=== PATIENT | male | born 1945 | race Caucasian/White ===

== ENCOUNTER → 2023-03-20 09:56 | Outpatient (REF) | payer OTHER, SELFPAY | LOC: HWRAD 09:56 | PROVIDERS: ATTENDING PHYSICIAN Nurse Practitioner Adult Health; FAMILY PHYSICIAN Family Medicine | DX: Z87.891 Personal history of nicotine dependence (principal) | CPT/HCPCS: 71271 ==

== ENCOUNTER 2023-04-18 06:24 | Day surgery (SDC) | payer OTHER, SELFPAY ==
[2023-04-18 09:31] VITALS: BMI 32.4
[2023-04-18 09:34] VITALS: BP 138/81
[2023-04-18 09:49] LABS: Glucose - Point of Care 100 mg/dl (70-99)
[2023-04-18 12:25] LABS: Glucose - Point of Care 94 mg/dl (70-99)
[2023-04-18 13:25] VITALS: BP 119/81
[2023-04-18 13:30] VITALS: BP 140/88
[2023-04-18 13:45] VITALS: BP 142/90
[2023-04-18 14:00] VITALS: BP 144/86
== END 2023-04-18 14:20 | disposition home or self-care (01) ==
LOC: GI 06:24
PROVIDERS: ATTENDING PHYSICIAN Internal Medicine Gastroenterology
DX: K31.89 Other diseases of stomach and duodenum (principal); Z79.01 Long term (current) use of anticoagulants
CPT/HCPCS: 43237; 82962

== ENCOUNTER → 2023-05-30 11:53 | Outpatient (REF) | payer OTHER, SELFPAY | LOC: HWRAD 11:53 | PROVIDERS: ATTENDING PHYSICIAN Specialist; FAMILY PHYSICIAN Family Medicine | DX: C67.9 Malignant neoplasm of bladder, unspecified (principal) | CPT/HCPCS: 72193; Q9967 ==

== ENCOUNTER 2023-07-03 09:35 | Emergency (ER) | payer OTHER, SELFPAY ==
[2023-07-03 09:51] VITALS: BP 151/89
[2023-07-03 11:03] VITALS: BP 142/74
--- NOTE | 2023-07-03 11:19 | ED.GENMED ---
History of Present Illness
General
Chief Complaint: Flank Pain
Source: patient
Exam Limitations: none
Time Seen by Provider: 07/03/23 11:05
Travel History
Have you had any contact with someone who has COVID-19?: No
Do you have any symptoms of coronavirus? Fever > 100 degrees, chills, cough, shortness of breath, sore throat, loss of taste or smell, muscle aches, or headache?: No
History of Present Illness
History of Present Illness:
77-year-old male presents complaining of persistent right lateral rib pain after a fall he sustained 3 days ago. He is on Eliquis. He is on chronic oxygen. He notes pain with motion and trying to have a bowel movement. He denies any shortness of
breath or hemoptysis. No other complaints at this time
Past History
Past History
ED Past Medical History: Cancer (Badder), COPD, GERD, HTN, NIDDM, Psychiatric and Other (BPH, chronic back pain, DVT/PE)
ED Past Surgical History: Orthopedic, Urological and Other (Hernia repair, ENT surgeon)
Social History
Tobacco: Smoker
Alcohol: Former
Drug: None
Personal:
Living: with family
Employment: Employed (Self-employed)
Family History
Family History: Other (Noncontributory)
Phy Exam
Physical Exam
Physical Exam:
General: Well-appearing male no acute respiratory distress
HEENT normocephalic atraumatic
Heart: Regular rate and rhythm no murmurs
Lungs: Clear no wheeze or rales breath sounds heard throughout
Abdomen: Soft nontender nondistended no guarding or rebound normal bowel sounds
Extremities: No cyanosis
Course
Orders/Labs/Results
Orders:
Orders
07/03/23 11:14
CR Ribs-right 3 Vw W/pa Chest* Urgent
Comment:
Reason For Exam: fall, right rib pain
Vital Signs
Initial and Last Documented VS:
Initial Vital Signs
Temp Pulse Resp BP Pulse Ox
98.1 F 64 22 151/89 91
07/03/23 09:51 07/03/23 09:51 07/03/23 09:51 07/03/23 09:51 07/03/23 09:51
Last Documented Vital Signs
Temp Pulse Resp BP Pulse Ox
98.1 F 66 18 142/74 91
07/03/23 09:51 07/03/23 11:03 07/03/23 11:03 07/03/23 11:03 07/03/23 11:03
MDM/Problems Addressed
Differential Diagnosis Includes:
Right lateral rib pain after mechanical fall. No ecchymosis over the flank no bruising on the abdomen. He is not hypoxic and in no respiratory distress. X-ray pending to evaluate for rib fracture versus pneumothorax
*Critical Care Note
Total Time (30-74mins, 75-104mins- exclusive of procedures): Not Applicable
Update Note
Update Note:
X-rays of the right ribs demonstrate minimally displaced right lateral 10th rib fracture without associated pneumothorax. Recommended continued supportive care with his pain medicine at home. Stable for discharge.
ED Attending Note
-
Portions of this chart may have been created with voice recognition software.� Occasional wrong word or��sound alike� substitutions may have occurred due to the inherent limitations of voice recognition software.
Discharge Plan
Departure
Patient Disposition: Home (Routine Discharge)
Date of Disposition: 07/03/23
Time of Disposition: 12:29
Patient with high blood pressure during this ER visit?: No
Discharge Problem:
Fracture of rib
Instructions: Rib Fracture
Prescriptions:
New
lidocaine [Lidoderm] 5 % adhesive patch,medicated
1 patch topical DAILY Qty: 15 0RF
No Action
atorvastatin 40 MG tablet
40 mg PO QPM
tamsulosin 0.4 MG capsule
0.8 mg PO HS
albuterol sulfate 1 PUFF HFA aerosol inhaler
2 puff inhalation PRN PRN (Reason: sob)
docusate sodium 100 MG capsule
100 mg PO .DAILY,BID PRN (Reason: constipation)
omeprazole 40 MG capsule,delayed release(DR/EC)
40 mg PO DAILY
Epidiolex 1 UNIT solution
0.25 dropperett sublingual HS
Patient Comments:
str
Rx Instructions:
(medical cannibis)
trazodone 100 MG tablet
100 - 200 mg PO HS
Eliquis 5 mg Tablet
5 mg PO BID
Hold Instructions: Resume on 05/11/22.
Trelegy Ellipta 100-62.5-25 mcg Blister With Device
1 inh INHALATION DAILY
hydrocodone-acetaminophen 5-325 mg Tablet
1 tab PO BID
fluoxetine 10 mg Tablet
10 mg PO DAILY
diphenhydramine HCl [Benadryl] 25 mg Capsule
25 mg PO PRN PRN (Reason: itching)
lactase [Lactaid] 3,000 unit Tablet
3,000 unit PO PRN PRN (Reason: GI upset)
loratadine [Claritin] 10 mg Tablet
10 mg PO DAILY
diazepam [Valium] 5 mg Tablet
5 mg PO PRN PRN (Reason: anxiety)
PreserVision AREDS-2 250-90-40-1 mg Tablet,Chewable
1 tab PO DAILY
gabapentin 100 mg Tablet
100 mg PO BID PRN (Reason: neuropathy legs)
Ocuvite-Lutein
1 tab PO DAILY
Januvia 100 MG tablet
100 mg PO QPM
Referrals:
Charlie Simon MD [Family Provider] -
Activity Restrictions/Additional Instructions:
Avoid heavy lifting or twisting activities. Continue with your pain medicine. Continue with stool softeners. Return here for increased pain shortness of breath or fever.
Interventions
Interventions:
*Risk Screen - Suicide Last Done: 07/03/23 09:51
*General Assessment Last Done: 07/03/23 09:51
*Neglect/Abuse Screening Last Done: 07/03/23 09:51
ED- Fall Risk Assessment Last Done: 07/03/23 11:03
VL-Ypqyog-Jigfqovdum Assessment Last Done: 07/03/23 11:03
ED-Male Genitourinary Assessment Last Done: 07/03/23 11:03
Discharge Date and Time
Print Language: SYRIAN
[2023-07-03 12:39] VITALS: BP 141/73
== END 2023-07-03 13:41 | disposition home or self-care (01) ==
LOC: EMR 09:35
PROVIDERS: EMERGENCY PHYSICIAN Emergency Medicine; FAMILY PHYSICIAN Family Medicine
DX: S22.31XA Fracture of one rib, right side, initial encounter for closed fracture (principal); W19.XXXA Unspecified fall, initial encounter; I10 Essential (primary) hypertension; J44.9 Chronic obstructive pulmonary disease, unspecified; E11.9 Type 2 diabetes mellitus without complications; K21.9 Gastro-esophageal reflux disease without esophagitis; N40.0 Benign prostatic hyperplasia without lower urinary tract symptoms; Z99.81 Dependence on supplemental oxygen; G89.29 Other chronic pain; F17.200 Nicotine dependence, unspecified, uncomplicated; Z79.01 Long term (current) use of anticoagulants; Z85.51 Personal history of malignant neoplasm of bladder; Z86.718 Personal history of other venous thrombosis and embolism; Z86.711 Personal history of pulmonary embolism; Z88.6 Allergy status to analgesic agent; Z88.1 Allergy status to other antibiotic agents; Z88.8 Allergy status to other drugs, medicaments and biological substances; Z91.018 Allergy to other foods; Z91.048 Other nonmedicinal substance allergy status
CPT/HCPCS: 99283; 71101

== ENCOUNTER → 2023-11-02 14:28 | Outpatient (REF) | payer OTHER, SELFPAY | LOC: HWRAD 14:28 | PROVIDERS: ATTENDING PHYSICIAN Family Medicine | DX: N50.89 Other specified disorders of the male genital organs (principal) | CPT/HCPCS: 76870; 93976 ==

== ENCOUNTER → 2024-04-23 12:48 | Outpatient (REF) | payer OTHER, SELFPAY | LOC: HWRAD 12:48 | PROVIDERS: ATTENDING PHYSICIAN Nurse Practitioner Adult Health; FAMILY PHYSICIAN Family Medicine | DX: Z87.891 Personal history of nicotine dependence (principal) | CPT/HCPCS: 71271 ==

== ENCOUNTER → 2024-04-29 10:06 | Outpatient (REF) | payer OTHER, SELFPAY | LOC: HWRCS 10:06 | PROVIDERS: ATTENDING PHYSICIAN Nurse Practitioner Adult Health; FAMILY PHYSICIAN Family Medicine | DX: R06.00 Dyspnea, unspecified (principal) | CPT/HCPCS: 93306 ==

== ENCOUNTER 2024-07-13 22:40 | Inpatient (IN) | payer OTHER, SELFPAY ==
[2024-07-13 19:31] VITALS: BP 133/84
--- NOTE | 2024-07-13 19:55 | ED.GENMED ---
History of Present Illness
General
Chief Complaint: Breathing Problem
Time Seen by Provider: 07/13/24 19:39
History of Present Illness
History of Present Illness:
Patient presents to the emergency department with shortness of breath. Symptoms have been gradually worsening over the past weeks to months. However, he notes that over the past few days he has been very fatigued and his pulse oximeter has been
dropping into the low 80s on his typical 3 L nasal cannula oxygen. Denies fevers or chills. Endorses chronic cough that is unchanged. Denies any new chest pain no states he has chronic chest pain from a prior PE and broken ribs. Denies leg
swelling
Past History
Past History
ED Past Medical History: Cancer (Badder), COPD, GERD, HTN, NIDDM, Psychiatric and Other (BPH, chronic back pain, DVT/PE)
ED Past Surgical History: Orthopedic, Urological and Other (Hernia repair, ENT surgeon)
Social History
Tobacco: Smoker
Alcohol: Former
Drug: None
Personal:
Living: with family
Employment: Employed (Self-employed)
Family History
Family History: Other (Noncontributory)
Phy Exam
Physical Exam
Physical Exam:
GENERAL APPEARANCE: Chronically ill-appearing, pale, in no acute distress, on nasal cannula O2
EYES lids/conjunctiva normal
EARS/NOSE/THROAT Mucous membranes moist, uvula midline without oral pharyngeal erythema, exudate or swelling
HEAD/NECK normocephalic atraumatic, neck is supple.
RESPIRATORY respiratory effort normal, speaks in full sentences, no accessory muscle use. Lungs clear to auscultation without rhonchi, wheezes, rales
CARDIAC Regular rate and rhythm, no edema.
ABDOMINAL Soft, ND/NT. No pulsatile masses on exam, rebound tenderness, Corey sign or pain over Mcburney's point.
MUSCLES/EXTREMITIES No abnormal range of motion, no swelling.
SKIN Warm, pink and dry. No rashes
NEUROLOGICAL Speech is clear and appropriate. Normal level of consciousness. 5/5 strength in all extremities.
PSYCH Normal mood and affect. Judgement/competence is appropriate
Scores
Heart Failure Risk
Heart Failure Risk Score: Not Applicable
Course
Orders/Labs/Results
Orders:
Orders
07/13/24 19:51
Electrocardiogram (*1) Stat
Reason for Study: Other
Other Reason for Exam: pneumonia
CR Chest - 2 Views Urgent
Comment:
Reason For Exam: sob
07/13/24 20:02
COVID-19 Antigen Urgent
Source: Nasal Swab
Complete Blood Count/With Diff Urgent
Comprehensive Metabolic Panel Urgent
D-Dimer Urgent
Magnesium Urgent
Troponin I Urgent
Venous Blood Gas Urgent
%Oxygen/Room Air: 3L NC
Influenza A+B Rapid Molecular Urgent
ANA Source: Nasal Swab
Specimen Description:
07/13/24 21:41
Azithromycin 500 mg/250 ml [Zithromax Infusion] 500 mg in 250 ml IV NOW
CefTRIAXone [Rocephin] 1,000 mg IV NOW STA
07/13/24 21:45
Blood Culture Q30M
ANA Source: Blood/Venous
Specimen Description:
07/13/24 22:15
Blood Culture Q30M
ANA Source: Blood/Venous
Specimen Description:
Abnormal Lab Results
07/13/24
20:02
RBC 4.05 L 10^6/uL
(4.70-6.10)
Hgb 12.9 L g/dL
(13.0-18.0)
Hct 38.4 L %
(39.0-52.0)
MCV 94.8 H fL
(80.0-94.0)
MCH 31.9 H pg
(27.0-31.0)
Abs Immat Gran (auto) 0.1 H 10^3/uL
(0-0.05)
Absolute Neuts (auto) 7.7 H 10^3/uL
(1.4-6.5)
Absolute Lymphs (auto) 0.6 L 10^3/uL
(1.2-3.4)
Immature Gran % 0.7 H %
(0-0.5)
Neutrophils % 89.5 H %
(42.2-75.2)
Lymphocytes % 7.3 L %
(20.5-51.1)
Monocytes % 1.6 L %
(1.7-9.3)
VBG pO2 114 H mmHg
(30-50)
VBG HCO3 27.8 H mmol/L
(22-27)
Creatinine 0.5 L mg/dL
(0.7-1.3)
Glucose 157 H mg/dl
(70-99)
07/13/24 20:02
07/13/24 20:02
Vital Signs
Initial and Last Documented VS:
Initial Vital Signs
Temp Pulse Resp BP Pulse Ox
99.3 F 89 16 133/84 88
07/13/24 19:31 07/13/24 19:31 07/13/24 19:31 07/13/24 19:31 07/13/24 19:31
Last Documented Vital Signs
Temp Pulse Resp BP Pulse Ox
99.3 F 81 20 127/83 85
07/13/24 19:31 07/13/24 21:30 07/13/24 21:30 07/13/24 21:00 07/13/24 21:30
*Critical Care Note
Total Time (30-74mins, 75-104mins- exclusive of procedures): Not Applicable
ED Attending Note
ED Attending Note
ED Attending Note:
hx of COPD and chronic lung disease on 3L NC at baseline, prior PE on Eliquis
notes worsening cough and sob and fatigue
low O2 sats at home in the low 80s
he has no wheezing, requiring 5L NC now
CXR with RML infiltrate
covering with ceftriaxone/azithro
-
Portions of this chart may have been created with voice recognition software.� Occasional wrong word or��sound alike� substitutions may have occurred due to the inherent limitations of voice recognition software.
Discharge Plan
Departure
Prescriptions:
No Action
atorvastatin 40 MG tablet
40 mg PO QPM
tamsulosin 0.4 MG capsule
0.8 mg PO HS
albuterol sulfate 1 PUFF HFA aerosol inhaler
2 puff inhalation PRN PRN (Reason: sob)
docusate sodium 100 MG capsule
100 mg PO .DAILY,BID PRN (Reason: constipation)
omeprazole 40 MG capsule,delayed release(DR/EC)
40 mg PO DAILY
Epidiolex 1 UNIT solution
0.25 dropperett sublingual HS
Patient Comments:
str
Rx Instructions:
(medical cannibis)
trazodone 100 MG tablet
100 - 200 mg PO HS
Eliquis 5 mg Tablet
5 mg PO BID
Trelegy Ellipta 100-62.5-25 mcg Blister With Device
1 inh INHALATION DAILY
hydrocodone-acetaminophen 5-325 mg Tablet
1 tab PO BID
fluoxetine 10 mg Tablet
10 mg PO DAILY
diphenhydramine HCl [Benadryl] 25 mg Capsule
25 mg PO PRN PRN (Reason: itching)
lactase [Lactaid] 3,000 unit Tablet
3,000 unit PO PRN PRN (Reason: GI upset)
loratadine [Claritin] 10 mg Tablet
10 mg PO DAILY
diazepam [Valium] 5 mg Tablet
5 mg PO PRN PRN (Reason: anxiety)
PreserVision AREDS-2 250-90-40-1 mg Tablet,Chewable
1 tab PO DAILY
gabapentin 100 mg Tablet
100 mg PO BID PRN (Reason: neuropathy legs)
Ocuvite-Lutein
1 tab PO DAILY
lidocaine [Lidoderm] 5 % adhesive patch,medicated
1 patch topical DAILY Qty: 15 0RF
Januvia 100 MG tablet
100 mg PO QPM
Referrals:
Charlie Simon MD [Family Provider, Family Practice]
Interventions
Interventions:
*Risk Screen - Suicide Last Done: 07/13/24 20:59
*General Assessment Last Done: 07/13/24 20:59
*ED- Fall Risk Assessment Last Done: 07/13/24 20:59
*ED COVID-19 Vaccine History Last Done: 07/13/24 20:59
ED- Cardiac Assessment Last Done: 07/13/24 21:03
ED- Pulmonary Assessment Last Done: 07/13/24 21:03
Discharge Date and Time
Print Language: SETSWANA
[2024-07-13 20:00] VITALS: BP 139/89
[2024-07-13 20:28] LABS: Venous Blood Gas B.E. 2.2 mmol/L (-4 to +4); Venous Blood Gas HCO3 27.8 mmol/L (22-27); Venous Blood Gas O2 Sat % 99.4 %; Venous Blood Gas pCO2 46 mmHg (35-48); Venous Blood Gas pH 7.39 (7.32-7.43); Venous Blood Gas pO2 114 mmHg (30-50)
[2024-07-13 20:29] LABS: % Basophils 0.8 % (0-2); % Eosinophils 0.1 % (0-6); % Immature Granulocytes 0.7 % (0-0.5); % Lymphocytes 7.3 % (20.5-51.1); % Monocytes 1.6 % (1.7-9.3); % Neutrophils 89.5 % (42.2-75.2); Absolute Basophils 0.1 10^3/uL (0-0.2); Absolute Immature Granulocytes 0.1 10^3/uL (0-0.05); Absolute Lymphocytes 0.6 10^3/uL (1.2-3.4); Absolute Monocytes 0.1 10^3/uL (0.1-0.6); Absolute Neutrophils 7.7 10^3/uL (1.4-6.5); Hematocrit 38.4 % (39.0-52.0); Hemoglobin 12.9 g/dL (13.0-18.0); Mean Corp Hgb Conc. 33.6 g/dL (33.0-37.0); Mean Corpuscular Hgb 31.9 pg (27.0-31.0); Mean Corpuscular Volume 94.8 fL (80.0-94.0); Mean Platelet Volume 9.1 fL (7.4-10.4); Nucleated Red Blood Cells % 0 % (-); Platelet Count 209 10^3/uL (130-400); Red Blood Cell Count 4.05 10^6/uL (4.70-6.10); Red Cell Dist. Width 13.2 % (11.5-14.5); White Blood Cell Count 8.6 10^3/uL (4.8-10.8)
[2024-07-13 20:41] LABS: D-Dimer 0.35 ug/mlFEU (0.00-0.50)
[2024-07-13 20:47] LABS: COVID-19 Antigen Negative (Negative)
[2024-07-13 20:54] LABS: Troponin I < 0.012 ng/ml
[2024-07-13 20:59] VITALS: BMI 33.2
[2024-07-13 20:59] LABS: ALT (SGPT) 27 U/L (0-50); AST (SGOT) 24 U/L (17-59); Albumin 4.5 g/dl (3.5-5.0); Alkaline Phosphatase 63 U/L (38-126); Blood Urea Nitrogen 17 mg/dl (9-20); Calcium 8.9 mg/dl (8.4-10.2); Carbon Dioxide 25 mmol/L (22-30); Chloride 104 mmol/L (98-107); Glucose 157 mg/dl (70-99); Magnesium 1.6 mg/dl (1.6-2.3); Potassium 4.4 mmol/L (3.5-5.1); Sodium 136 mmol/L (135-145); Total Protein 7.4 g/dl (6.3-8.2); eGFR > 60.00
[2024-07-13 21:00] VITALS: BP 127/83
--- NOTE | 2024-07-13 21:48 | HPS.HSE ---
Addendum entered and electronically signed by Keven Chambers DO 07/13/24 22:37:
Patient seen and examined independently. Agree with findings and plan as set forth by EV Blount.
Patient is a 78y M with PMH significant for COPD, chronic hypoxemia on home O2 and hypertension who presents to ED complaining of increased SOB for the past 2 days in particular. Patient wears 3 lpm of O2 at home chronically. He woke yesterday
AM with SpO2 in the 80s despite his usual O2 supplementation. He notes some cough. He complains of discomfort in the L ear / jaw area. No fevers or chills. No chest pain.
Patient states that he was extremely SOB this afternoon and he presented to the ED for further evaluation.
In the ED, patient was noted to have marked conversational dyspnea with O2 saturations falling into the 80s with talking alone.
Ass:
Acute on Chronic Hypoxemic Respiratory Failure
RLL Pneumonia
COPD with Acute Exacerbation secondary to the above
Benign Hypertension
DM-II
History of PE
BPH
History of Bladder Cancer
Anxiety / Depression
Plan:
Admit for further evaluation and treatment.
Continue abx for community acquired pneumonia.
IV steroids for now and taper as able.
Pulmonary evaluation for additional recommendations (seen in their office yesterday).
Continue usual outpatient medication regimen.
Follow for clinical improvement.
Original Note:
Family Physician
-
Family Physician: Charlie Simon
Chief Complaint
-
sob
History of Present Illness
78-year-old with past medical history of bladder cancer, COPD, GERD, hypertension, diabetes, BPH, chronic back pain, DVT/PE presented to us with worsening sob. his sob progressively getting worse for past few months. yesterday he woke with oxygen in
80's on 3l. he uses Cpap at hs. sob worse with exertion. he is not able to talk. he increased his oxygen to 4l . today he was evaluated by pulmonology, placed him on steroids. he is complaining of left ear, facial, jaw pain. denied fever, chills,
chest pain. he has chronic cough. he has chronic abdominal pain and all work up were negative. denied dysuria or hematuria.
upon arrival patient was hypoxic requiring 5l of oxygen. chest x ray concerning for pneumonia. patient recived ceftriaxone, zithro, nebs in ER. blood culture sent from ER. admitting for further management.
Medical History
Past Medical History
Past Medical History: Reports Other
Additional Past Medical History:
Bladder cancer, COPD, GERD, hypertension, diabetes, BPH, chronic back pain, DVT, PE
Past Surgical History: Reports Other
Additional Past Surgical History:
Hernia surgery
Social History
Tobacco: Former Smoker
Alcohol: Former
Drug: Marijuana
Personal:
Living: With Family
Family History
Family History: Not pertinent
Allergies / Home Medications
Allergies reflects when Allergies were last updated in [facility].
Home Medications with original date entered in [facility]
Allergy/Medication List:
Allergies
Allergy/AdvReac Type Severity Reaction Status Date / Time
aspirin Allergy Anaphylaxis Verified 07/13/24 19:35
gluten Allergy extensive Verified 07/13/24 19:35
rash
levofloxacin Allergy Swelling, Verified 07/13/24 19:35
breathing
difficulty
pollen extracts Allergy nasal Verified 07/13/24 19:35
congestion
Quinolones Allergy Swelling, Verified 07/13/24 19:35
breathing
difficulty
Salicylates * Allergy Swelling, Verified 07/13/24 19:35
breathing
difficulty
NSAIDS (Non-Steroidal AdvReac Mild GI distress Verified 07/13/24 19:35
Anti-Inflamma
pastrami Allergy Anaphylaxis Uncoded 07/13/24 19:35
Home Medications
sitagliptin phosphate 100 mg tablet (Januvia) 100 mg PO QPM Diabetes 04/29/16
atorvastatin 40 mg tablet 40 mg PO QPM High cholesterol 05/02/16
albuterol sulfate 90 mcg/actuation aerosol inhaler 2 puff inhalation PRN PRN sob 06/11/20
docusate sodium 100 mg capsule 100 mg PO .DAILY,BID PRN constipation 06/11/20
tamsulosin 0.4 mg capsule 0.8 mg PO HS Urinary issue 06/11/20
apixaban 5 mg tablet (Eliquis) 5 mg PO BID Blood clot prevention/tx 05/03/22
Held on 05/10/22. Instructions: Resume on 05/11/22.
fluoxetine 10 mg tablet 10 mg PO DAILY Depression 05/03/22
fluticasone fur. 100 mcg-umeclid 62.5 mcg-vilant 25 mcg inhalat.powder (Trelegy Ellipta) 1 inh inhalation DAILY Lung/breathing issues 05/03/22
hydrocodone 5 mg-acetaminophen 325 mg tablet 1 tab PO BID PRN moderate pain 05/03/22
diazepam 5 mg tablet (Valium) 5 mg PO PRN PRN anxiety 09/19/22
diphenhydramine HCl 25 mg capsule (Benadryl) 25 mg PO PRN PRN itching 09/19/22
loratadine 10 mg tablet (Claritin) 10 mg PO DAILY 09/19/22
Ocuvite-Lutein 1 tab PO DAILY 12/22/22
gabapentin 100 mg tablet 100 mg PO BID neuropathy legs 12/22/22
famotidine 40 mg tablet 40 mg PO DAILY 07/13/24
meclizine 25 mg tablet 25 mg PO TID PRN dizzy 07/13/24
pantoprazole 40 mg tablet,delayed release (Protonix) 40 mg PO BID 07/13/24
vibegron 75 mg tablet (Gemtesa) 75 mg PO DAILY 07/13/24
Review of Systems
-
Constitutional: Reports Fatigue
EENT: Reports No Symptoms
Respiratory: Reports Cough and Trouble Breathing
Cardiac: Reports No Symptoms
Abdomen/GI: Reports No Symptoms
: Reports No Symptoms
Musculoskeletal: Reports No Symptoms
Skin: Reports No Symptoms
Neurological: Reports No Symptoms
Endocrine: Reports No Symptoms
Hematologic/Lymphatic: Reports No Symptoms
Psych: Reports No Symptoms
Physical Exam
Vital Signs
Vital Signs
Temp Pulse Resp BP Pulse Ox
99.3 F 81 20 127/83 85
07/13/24 19:31 07/13/24 21:30 07/13/24 21:30 07/13/24 21:00 07/13/24 21:30
Physical Exam
General: Well Developed, Well Nourished and No Apparent Distress
HEENT: NormoCephalic, Moist mucous membranes and Atraumatic
Respiratory: Rales
Cardiac: S1/S2 and Regular Rhythm; No Murmur or Rub
GI: Soft, Non Tender, Non Distended and Normal Bowel Sounds; No Organomegaly
Rectal: Deferred by Provider
Musculoskeletal: No Clubbing, No Cyanosis and No Edema
Skin: No Rash
Neuro: AO x 3 and Nonfocal/grossly intact
Psych: Calm
Laboratory Results
-
07/13/24 20:02
07/13/24 20:02
Laboratory Results
Total Bilirubin 1.0 mg/dl (0.2-1.3) 07/13/24 20:02
AST 24 U/L (17-59) 07/13/24 20:02
ALT 27 U/L (0-50) 07/13/24 20:02
Alkaline Phosphatase 63 U/L (38-126) 07/13/24 20:02
Troponin I < 0.012 ng/ml 07/13/24 20:02
Data Reviewed
-
Lab Data: Labs Reviewed by me
Impression/Plan
-
# Acute on chronic hypoxic respiratory failure secondary to right middle lobe infiltrate
- Uses 3 L at baseline, at present on 5 L
- Continue supplemental oxygen to keep sat greater than 90, wean as tolerated
- Ceftriaxone and Doxy continued
- Tylenol as needed for fever or pain
- Mucinex for cough
- Nebs as needed for shortness breath and wheezing
- COVID flu negative
-Decadron 4mg q8h
-pulmonology consulted
# History of bladder cancer status post TURP and resection of bladder tumor
#History of PE
-eliquis continued
#HLD
-DESKTOP SUPPORT SPECIALIST atorvastatin
#anxiety
-Valium,fluoxetine continued
#GERD
-PPI continued
#DM
-Glucose controlled
-ISS
-hold DESKTOP SUPPORT SPECIALIST Januvia, can resume on discharge
#BPH
-Flomax continued
DVT PPx - SCD
DNR -
[2024-07-13] MEDS: TYLENOL 650 MG PO (22:23)
[2024-07-13] MEDS: ZITHROMAX INFUSION 250 IV (22:25)
[2024-07-13] MEDS: DUONEB 3 ML INH (22:25)
[2024-07-13] MEDS: ROCEPHIN 1000 MG IV (22:26)
[2024-07-13 23:00] VITALS: PULSE 2; PULSE 72
[2024-07-13 23:45] VITALS: BP 157/92
--- NOTE | 2024-07-13 23:45 | PTCARENOTE ---
Pt admitted to 416-2 from ED. Stood and pivoted to bed, generalized weakness. AAOx3. Call [facility]cf[facility]n within reach.
[2024-07-13 23:58] VITALS: BMI 32.8
[2024-07-14 00:37] LABS: Glucose - Point of Care 138 mg/dl (70-99)
[2024-07-14] MEDS: DESYREL 200 MG PO (00:58)
[2024-07-14] MEDS: MUCINEX 600 MG PO ×3 (00:58→20:20)
[2024-07-14] MEDS: DECADRON 4 MG IV ×4 (00:58→23:00)
[2024-07-14 04:00] VITALS: PULSE 2
[2024-07-14 06:00] VITALS: BMI 33.1
[2024-07-14 07:00] VITALS: BP 146/82
[2024-07-14 07:50] LABS: Glucose - Point of Care 160 mg/dl (70-99)
[2024-07-14] MEDS: VENTOLIN NEBULES 2.5 MG INH ×4 (07:57→20:28)
[2024-07-14] MEDS: SYMBICORT 80/4.5 MCG INHALER 2 PUFF INH ×2 (07:57→20:28)
[2024-07-14] MEDS: SPIRIVA RESPIMAT 2.5 MCG 2 PUFF INH (07:57)
[2024-07-14] MEDS: CLARITIN 10 MG PO (08:21)
[2024-07-14] MEDS: NEURONTIN 100 MG PO ×2 (08:21→20:20)
[2024-07-14] MEDS: NOVOLOG FLEXPEN-LOW RESISTANCE 1 UNITS SC (08:21)
[2024-07-14] MEDS: PROZAC 10 MG PO (08:21)
[2024-07-14] MEDS: ELIQUIS 5 MG PO ×2 (08:21→20:20)
[2024-07-14] MEDS: PEPCID 40 MG PO (08:22)
[2024-07-14] MEDS: PROTONIX 40 MG PO ×2 (08:22→20:20)
[2024-07-14 09:08] VITALS: BP 112/77; PULSE 81; O2SAT 94
[2024-07-14] MEDS: NORCO 5/325 1 TABLET PO (10:07)
--- NOTE | 2024-07-14 11:13 | W.PN.HOSP.TC ---
Today's Communication/Plan
-
Continue Ceftriaxone/Doxycycline/Decadron 4 mg IV q8h/SSI
Pulm consult
Assessment / Plan
Assessment / Plan
# Acute on chronic hypoxic respiratory failure secondary to right middle lobe infiltrate
- Uses 3 L at baseline, at present on 5 L
- Continue supplemental oxygen to keep sat greater than 90, wean as tolerated
- Ceftriaxone and Doxy continued
- Tylenol as needed for fever or pain
- Mucinex for cough
- Nebs as needed for shortness breath and wheezing
- COVID flu negative
-Decadron 4mg q8h
-pulmonology consulted
CXR: 1. SEVERE SCARRING in the LEFT LOWER LOBE with associated volume loss and moderate elevation of the left hemidiaphragm which appears unchanged.
2. Mild to moderate scarring in the right middle and lower lobes which appears unchanged.
3. SEVERE BILATERAL UPPER LOBE EMPHYSEMA.
# History of bladder cancer status post TURP and resection of bladder tumor
#History of PE
-eliquis continued
#HLD
-DIRECTOR INSTRUCTIONAL MATERIAL atorvastatin
#anxiety
-Valium,fluoxetine continued
#GERD
-PPI continued
#DM
-Glucose controlled
-ISS
-hold DIRECTOR INSTRUCTIONAL MATERIAL Januvia, can resume on discharge
glu 138-160 (on SSI to cover for steroids)
#BPH
-Flomax continued
DVT PPx - SCD
DNR -
Anticipated Discharge: > 48 hours
Subjective/Interval History
-
Date of Service: July 14, 2024
Pt believes he is less sob since admission
Objective Data
-
Vital Signs:
Vital Signs
Temp Pulse Resp BP Pulse Ox
97.8 F 68 18 146/82 95
07/14/24 07:00 07/14/24 07:58 07/14/24 07:58 07/14/24 07:00 07/14/24 09:58
I&O
07/13/24 07/14/24 07/15/24
06:59 06:59 06:59
Output Total 750 / 750 750 / 750
Balance -750 / -750 -750 / -750
Review of Systems
-
History Source: Patient and Coordinated Provider
Constitutional: Denies Fever
EENT: Reports No Symptoms Reported
Respiratory: Reports Cough and Trouble Breathing
Abdomen/GI: Reports No Symptoms; Denies Abdominal Pain
Genitourinary: Reports No Symptoms
Musculoskeletal: Reports No Symptoms
Physical Exam
-
General: Well Developed, Well Nourished, No Apparent Distress, Comfortable and Respiratory Distress (with exertion, overall better than when first admitted)
HEENT: Normocephalic and Atraumatic
Respiratory: Wheezes (prolonged expiratory phase, end expiratory wheeze on forced expiration) and Decreased Breath Sounds (distant BS)
Cardiac: Regular Rhythm and S1/S2
GI: Soft, Nontender and Nondistended
Musculoskeletal: No Clubbing, No Cyanosis and No Edema
Skin: Warm and Dry
Neuro: Awake, Alert and Oriented
[2024-07-14 11:39] LABS: Glucose - Point of Care 129 mg/dl (70-99)
[2024-07-14] MEDS: NOVOLOG FLEXPEN-LOW RESISTANCE SC ×2 (11:47→17:12)
--- NOTE | 2024-07-14 12:03 | CM ---
Initial assessment completed. Patient is a 78y M with PMH significant for COPD, chronic hypoxemia on home O2 and hypertension who presents to ED complaining of increased SOB for the past 2 days in particular. Patient wears 3 lpm of O2 at home
chronically.
Patient resides w/ spouse in a single story renovated barn home, 1 step to enter. Patient prev independent but as been using RW recently. Patient has home O2 at 3L thru [facility], has shower chair and 2-3 grab bars additionally. No SNF hx
reported, VN in the past, OP therapy in the past following knee replacement.
Address, points of contact and insurance verified
PCP: Charlie Simon
Pharmacy: [facility]
Therapy assessed, rec HH at [facility]
Pulm consulted
Plan: Home w/ HH when stable
--- NOTE | 2024-07-14 12:50 | CON.PUL ---
Consultation
Consultation Request
Date/Time Consultation Requested: 07/13/2024 - 2334
Date/Time Consultation Performed: 07/14/2024 - 1233
Requesting Provider: EV Blount
Performing Provider: Dr. Mckay
Reason for Consultation: Hypoxia
Medical History
-
Chief Complaint: Shortness of breath
History of Present Illness:
78-year-old male with a past medical history of of COPD, CRESENCIO on CPAP, history of DVT/PE, pericardial cyst, depression, former tobacco use, former alcohol use, hyperlipidemia, chronic sinusitis, DM type II, BPH s/p TURP, and history of bladder cancer
s/p TURBT who presents with shortness of breath. Patient follows with us in the [facility] office, last visit 04/17/2024 with EV Travis. Managed on Trelegy 100 mcg + albuterol HFA as needed. He has stable moderate�severe COPD. On 07/12/2024,
he started to feel weak and short of breath with minimal activity. He checks his oxygen levels at home and it was as low as 83% at rest. He has oxygen at home although 6-minute walk test performed in the office showed that he did not need home
oxygen so it was in the process of being removed. He had been using 4 L/min at home. Prednisone taper prescribed by Dr. Mckay after the patient called the pulmonary office emergency line on 07/13. Because he did not improve he came into the
hospital for further evaluation. In the ER he was afebrile to 99.3 �F, pulse rate 89, respiratory rate 16, BP 133/84 and saturating 88% on 1 L/min. Saturations improved to 96% on 4 L/min. Labs showed Hb 12.9, troponin negative at <0.012, and
COVID-19 antigen negative. Flu swab was negative and blood cultures were collected. CXR showed large air bubble in the stomach with bibasilar scarring and subtle increased opacification in the right base. In the ER he was given ceftriaxone,
Zithromax, DuoNebs and Tylenol and admitted to the hospitalist service. Pulmonary service now consulted for additional management/recommendations.
When I saw the patient, he was resting in bed, on 4 L/min nasal cannula. He says he feels better so far. Denies any recent sick contacts. Has been compliant with his Trelegy. Also uses CPAP which has bled with 3-4 L/min O2. Currently denies
chest pain, LECHUGA, nausea, fevers or chills.
PMHx: COPD, CRESENCIO on CPAP at 13 cmH2O, history of PE/DVT ( treated with 1 year of Coumadin with recurrent bilateral PE and extensive RLE DVT - 05/2020), history of pulmonary nodule, pericardial cyst, former tobacco smoker (82-liij-uvde
history, quit 2017), depression, history of alcohol abuse, hyperlipidemia, chronic sinusitis, IBS, history of diverticulitis, arthritis, DM type II, BPH s/p TURP, celiac disease, history of bladder cancer (04/2022)
PSHx: Knee surgery, TURP (2011), TURBT (04/2022), bladder biopsy (09/2022), complex nose laceration s/p surgical repair (2004)
Past Medical History
Past Medical History: Other (Above as per HPI)
Past Surgical History: Other (Above as per HPI)
Social History
Tobacco: Former Smoker (10-assa-whzo history, quit 2017)
Alcohol: None
Drug: None
Family History
Family History: Other (Father: CHF; Sibling: stroke)
Allergies / Home Medications
Allergies
Allergy/AdvReac Type Severity Reaction Status Date / Time
aspirin Allergy Anaphylaxis Verified 07/13/24 19:35
gluten Allergy extensive Verified 07/13/24 19:35
rash
levofloxacin Allergy Swelling, Verified 07/13/24 19:35
breathing
difficulty
pollen extracts Allergy nasal Verified 07/13/24 19:35
congestion
Quinolones Allergy Swelling, Verified 07/13/24 19:35
breathing
difficulty
Salicylates * Allergy Swelling, Verified 07/13/24 19:35
breathing
difficulty
NSAIDS (Non-Steroidal AdvReac Mild GI distress Verified 07/13/24 19:35
Anti-Inflamma
pastrami Allergy Anaphylaxis Uncoded 07/13/24 19:35
Home Medications
�Medication �Instructions �Recorded �Confirmed �Last Taken �Type
sitagliptin phosphate 100 mg 100 mg PO QPM Diabetes 04/29/16 07/14/24 07/12/24 History
tablet (Januvia)
atorvastatin 40 mg tablet 40 mg PO QPM High cholesterol 05/02/16 07/14/24 07/12/24 22:00 History
albuterol sulfate 90 mcg/actuation 2 puff inhalation PRN PRN sob 06/11/20 07/14/24 07/13/24 History
aerosol inhaler
docusate sodium 100 mg capsule 100 mg PO .DAILY,BID PRN 06/11/20 07/14/24 07/13/24 History
constipation
tamsulosin 0.4 mg capsule 0.8 mg PO HS Urinary issue 06/11/20 07/14/24 07/12/24 22:00 History
apixaban 5 mg tablet (Eliquis) 5 mg PO BID Blood clot 05/03/22 07/14/24 07/13/24 08:00 History
Held on 05/10/22. prevention/tx
Instructions: Resume on
05/11/22.
fluoxetine 10 mg tablet 10 mg PO DAILY Depression 05/03/22 07/14/24 07/13/24 08:00 History
fluticasone fur. 100 mcg-umeclid 1 inh inhalation DAILY 05/03/22 07/14/24 07/13/24 History
62.5 mcg-vilant 25 mcg Lung/breathing issues
inhalat.powder (Trelegy Ellipta)
hydrocodone 5 mg-acetaminophen 325 1 tab PO BID PRN moderate pain 05/03/22 07/14/24 04/17/23 History
mg tablet
diazepam 5 mg tablet (Valium) 5 mg PO PRN PRN anxiety 0807/14/24 04/17/23 History
diphenhydramine HCl 25 mg capsule 25 mg PO PRN PRN itching 09/19/22 07/13/24 04/17/23 History
(Benadryl)
loratadine 10 mg tablet (Claritin) 10 mg PO DAILY 09/19/22 07/14/24 07/13/24 08:00 History
Ocuvite-Lutein 1 tab PO DAILY 12/22/22 07/14/24 07/13/24 08:00 History
gabapentin 100 mg tablet 100 mg PO BID neuropathy legs 12/22/22 07/14/24 07/13/24 08:00 History
famotidine 40 mg tablet 40 mg PO DAILY 07/13/24 07/14/24 07/13/24 08:00 History
meclizine 25 mg tablet 25 mg PO TID PRN dizzy 07/13/24 07/14/24 07/13/24 History
pantoprazole 40 mg tablet,delayed 40 mg PO BID 07/13/24 07/14/24 07/13/24 08:00 History
release (Protonix)
vibegron 75 mg tablet (Gemtesa) 75 mg PO DAILY 07/13/24 07/14/24 07/13/24 08:00 History
trazodone 100 mg tablet 200 mg PO HS 07/14/24 07/14/24 07/12/24 22:00 History
Review of Systems
-
History Source: Patient
All other systems: Negative unless noted
Vitals / Labs / Diagnostic Testing
Vital Signs
Temp Pulse Resp BP Pulse Ox
97.8 F 68 18 146/82 95
07/14/24 07:00 07/14/24 07:58 07/14/24 07:58 07/14/24 07:00 07/14/24 09:58
Lab Data
07/13/24 20:02
07/13/24 20:02
Microbiology
07/13/24 20:02 Nasal Swab Influenza Types A & B (FRAN) - Final
Negative for Influenza A & B, NAAT
Negative results must be combined with clinical observations
and patient history.
Nucleic Acid Amplification test (NAAT)performed on the
[employer] platform.
Diagnostic Testing:
Physical Exam
-
HEENT: Normocephalic, Anicteric and Other (Thick neck)
Cardiovascular: S1/S2 and Peripheral Edema (+1 lower extremity edema bilaterally)
Respiratory: Wheeze (negative), Rales (Faint bibasilar), Rhonchi (negative), Non-Labored Respirations and Other (Diminished breath sounds bilaterally)
GI: Soft, Distended (Abdominal obesity), Non Tender and Normal Bowel Sounds
Neurology: AO x 3 and Tremors (negative)
Skin: Warm and Dry
General: Respiratory Distress (negative), Comfortable, Fever (negative) and Chills (negative)
Assessment
-
Assessment: 78-year-old male with a past medical history of of COPD, CRESENCIO on CPAP, history of DVT/PE, pericardial cyst, depression, former tobacco use, former alcohol use, hyperlipidemia, chronic sinusitis, DM type II, BPH s/p TURP, and history of
bladder cancer s/p TURBT who presents with shortness of breath. Patient follows with us in the [facility] office, last visit 04/17/2024 with EV Travis. Managed on Trelegy 100 mcg + albuterol HFA as needed. He has stable moderate�severe COPD.
On 07/12/2024, he started to feel weak and short of breath with minimal activity. He checks his oxygen levels at home and it was as low as 83% at rest. He has oxygen at home although 6-minute walk test performed in the office showed that he did not
need home oxygen so it was in the process of being removed. He had been using 4 L/min at home. Prednisone taper prescribed by Dr. Mckay after the patient called the pulmonary office emergency line on 07/13. Because he did not improve he came
into the hospital for further evaluation. In the ER he was afebrile to 99.3 �F, pulse rate 89, respiratory rate 16, BP 133/84 and saturating 88% on 1 L/min. Saturations improved to 96% on 4 L/min. Labs showed Hb 12.9, troponin negative at <0.012,
and COVID-19 antigen negative. Flu swab was negative and blood cultures were collected. CXR showed large air bubble in the stomach with bibasilar scarring and subtle increased opacification in the right base. In the ER he was given ceftriaxone,
Zithromax, DuoNebs and Tylenol and admitted to the hospitalist service. Pulmonary service now consulted for additional management/recommendations.
Chronic conditions LABORATORY SECRETARY: COPD, CRESENCIO on CPAP at 13 cmH2O, history of PE/DVT ( treated with 1 year of Coumadin with recurrent bilateral PE and extensive RLE DVT - 05/2020), history of pulmonary nodule, pericardial cyst, former tobacco smoker
(59-ukam-tuhj history, quit 2018), depression, history of alcohol abuse, hyperlipidemia, chronic sinusitis, IBS, history of diverticulitis, arthritis, DM type II, BPH s/p TURP, celiac disease, history of bladder cancer (04/2022)
Impression:
#Right-sided CAP
#Acute COPD exacerbation
#Acute hypoxic respiratory failure due to above
#Constipation
#Chronic opioid use
#CRESENCIO on CPAP at 13 cm of water
#Anemia
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
#History of DVT/PE on Eliquis
#History of bladder cancer s/p TURBT
#GERD
#Former tobacco use (02-ilaq-vsvx history, quit 2018)
Plan:
- Would treat for a COPD exacerbation with antibiotics to cover a pneumonia
- Maintain SpO2 88-95% with supplemental O2 and wean down as tolerated
- He will need an ambulatory pulse oximetry prior to discharge
- Takes Trelegy at home, hence continue Symbicort 80 mcg + Spiriva; continue nebulized albuterol QID, monitoring for shakiness +/- tachycardia
- prn nebulized bronchodilators - not currently bronchospastic
- Continue systemic steroids with Decadron 4 mg IV q8hr, reducing as he clinically improves
- Mucolytics with Mucinex
- If patient develops coughing spells then would start scheduled Tessalon Perles (finite course)
- Continue antibiotics with ceftriaxone + doxycycline
- Trend WBC and monitor temperature curve
- Follow-up blood cultures x 2 (collected 07/13), and will check Legionella + strep pneumoniae urine antigens, mycoplasma serology given his unimpressive CXR with possible walking pneumonia
- Continue with CPAP at 13 cmH2O which is his home settings, with average usage at home of 12 hours 18 minutes with residual AHI 0.6 (baseline AHI 112 events/hour via sleep study in June 2011)
- Of note, patient qualifies for annual LDCT chest at least until he is 79 years old -next due in April 2025 (this can be discussed as an outpatient
- Incentive spirometer encouraged q1hr while awake
- Replete electrolytes with K>4, Mg>2
- Trend H/H and transfuse if needed to keep Hb>7g/dL; keep plt>20k, unless there is concern for bleeding then keep plt>50k
- Maintain euglycemia with goal BG >100 and <180; check A1C
- DVT ppx: Eliquis
Code status: DNR/DNI
Pulmonary service will continue to follow along. We will arrange for outpatient pulmonary office follow-up after discharge.
Data:
CXR 07/13/2024:
1. SEVERE SCARRING in the LEFT LOWER LOBE with associated volume loss and moderate elevation of the left hemidiaphragm which appears unchanged.
2. Mild to moderate scarring in the right middle and lower lobes which appears unchanged.
3. SEVERE BILATERAL UPPER LOBE EMPHYSEMA.
Total time spent today was 61 minutes for this encounter. Time includes reviewing laboratory test/imaging results, reviewing pertinent medical records, obtaining and reviewing medical history, performing an appropriate exam, ordering medications,
tests and procedures. Time also includes documentation of this encounter, coordinating patient care and communicating with other healthcare professionals. Total time does not include separately billed tests performed on this date of service.
[2024-07-14 15:00] VITALS: BP 146/81
[2024-07-14 16:31] LABS: Glucose - Point of Care 157 mg/dl (70-99)
[2024-07-14] MEDS: LIPITOR 40 MG PO (17:45)
[2024-07-14] MEDS: VIBRAMYCIN 100 MG PO (20:20)
[2024-07-14 21:11] LABS: Glucose - Point of Care 153 mg/dl (70-99)
[2024-07-14] MEDS: FLOMAX 0.8 MG PO (21:20)
[2024-07-14] MEDS: ROCEPHIN 1000 MG IV (21:20)
[2024-07-14] MEDS: SENOKOT-S 2 TABLET PO (21:20)
[2024-07-14 23:20] VITALS: BP 134/72
[2024-07-14 23:30] VITALS: PULSE 2; PULSE 73
[2024-07-15 04:30] VITALS: PULSE 2
[2024-07-15 07:00] VITALS: BP 158/89
[2024-07-15 07:26] LABS: % Basophils 0.1 % (0-2); % Immature Granulocytes 0.4 % (0-0.5); % Lymphocytes 8.8 % (20.5-51.1); % Neutrophils 84.7 % (42.2-75.2); Absolute Immature Granulocytes 0.1 10^3/uL (0-0.05); Absolute Lymphocytes 1.2 10^3/uL (1.2-3.4); Absolute Monocytes 0.8 10^3/uL (0.1-0.6); Absolute Neutrophils 11.5 10^3/uL (1.4-6.5); Hemoglobin 13.2 g/dL (13.0-18.0); Mean Corp Hgb Conc. 33.8 g/dL (33.0-37.0); Mean Corpuscular Hgb 32.3 pg (27.0-31.0); Mean Corpuscular Volume 95.4 fL (80.0-94.0); Mean Platelet Volume 9.2 fL (7.4-10.4); Nucleated Red Blood Cells % 0 % (-); Platelet Count 223 10^3/uL (130-400); Red Blood Cell Count 4.09 10^6/uL (4.70-6.10); Red Cell Dist. Width 13.8 % (11.5-14.5); White Blood Cell Count 13.6 10^3/uL (4.8-10.8)
[2024-07-15 07:52] LABS: Glucose - Point of Care 135 mg/dl (70-99)
[2024-07-15] MEDS: SPIRIVA RESPIMAT 2.5 MCG 2 PUFF INH (07:58)
[2024-07-15] MEDS: VENTOLIN NEBULES 2.5 MG INH ×4 (07:59→19:25)
[2024-07-15] MEDS: SYMBICORT 80/4.5 MCG INHALER 2 PUFF INH ×2 (07:59→19:25)
[2024-07-15 08:23] LABS: Blood Urea Nitrogen 17 mg/dl (9-20); Calcium 9.2 mg/dl (8.4-10.2); Carbon Dioxide 25 mmol/L (22-30); Chloride 105 mmol/L (98-107); Estimated Creatinine Clearance > 125 ml/min; Glucose 133 mg/dl (70-99); Magnesium 1.9 mg/dl (1.6-2.3); Phosphorus 3.2 mg/dl (2.5-4.5); Potassium 4.1 mmol/L (3.5-5.1); Sodium 139 mmol/L (135-145); eGFR > 60.00
[2024-07-15] MEDS: NOVOLOG FLEXPEN-LOW RESISTANCE SC ×3 (08:42→16:39)
[2024-07-15] MEDS: PEPCID 40 MG PO (08:43)
[2024-07-15] MEDS: CLARITIN 10 MG PO (08:43)
[2024-07-15] MEDS: PROTONIX 40 MG PO ×2 (08:43→19:40)
[2024-07-15] MEDS: MUCINEX 600 MG PO ×2 (08:43→19:40)
[2024-07-15] MEDS: ELIQUIS 5 MG PO ×2 (08:43→19:40)
[2024-07-15] MEDS: NEURONTIN 100 MG PO ×2 (08:43→19:40)
[2024-07-15] MEDS: DETROL LA 4 MG PO (08:44)
[2024-07-15] MEDS: PROZAC 10 MG PO (08:44)
[2024-07-15] MEDS: DECADRON 4 MG IV (08:44)
[2024-07-15] MEDS: VIBRAMYCIN 100 MG PO ×2 (08:45→19:40)
[2024-07-15] MEDS: VALIUM 5 MG PO (10:34)
[2024-07-15 11:21] LABS: Glycohemoglobin (HgbA1c) 5.4 % (4.0-5.6)
[2024-07-15 11:46] LABS: Glucose - Point of Care 112 mg/dl (70-99)
--- NOTE | 2024-07-15 13:07 | W.PN.HOSP.TC ---
Today's Communication/Plan
-
continue abx
begin weaning steroids
Pt requesting medical Marijuana cream, to apply to back, will allow
Assessment / Plan
Assessment / Plan
# Acute on chronic hypoxic respiratory failure secondary to right middle lobe infiltrate
- Uses 3 L at baseline, was on 5 L, now back to 3 L/M with SaO2 of 95%
- Continue supplemental oxygen to keep sat greater than 90, wean as tolerated
- Ceftriaxone and Doxy continued
- Tylenol as needed for fever or pain
- Mucinex for cough
- Nebs as needed for shortness breath and wheezing
- COVID flu negative
-Decadron 4mg q8h, will start to wean
-pulmonology consulted - input appreciated
CXR: 1. SEVERE SCARRING in the LEFT LOWER LOBE with associated volume loss and moderate elevation of the left hemidiaphragm which appears unchanged.
2. Mild to moderate scarring in the right middle and lower lobes which appears unchanged.
3. SEVERE BILATERAL UPPER LOBE EMPHYSEMA.
# History of bladder cancer status post TURP and resection of bladder tumor
#History of PE
-eliquis continued
#HLD
-MORTGAGE ANALYST atorvastatin
#anxiety
-Valium,fluoxetine continued
#GERD
-PPI continued
#DM
-Glucose controlled
-ISS
-hold MORTGAGE ANALYST Januvia, can resume on discharge
glu 112-153 (on SSI to cover for steroids)
#BPH
-Flomax continued
DVT PPx - SCD
DNR -
Anticipated Discharge: > 48 hours
Subjective/Interval History
-
Date of Service: July 15, 2024
Generally feeling better. Asking to use his home Medical Marijuana Cream
Objective Data
-
Labs:
Laboratory Results
07/15/24
07:07
WBC 13.6 H
Hgb 13.2
Hct 39.0
Plt Count 223
Sodium 139
Potassium 4.1
Chloride 105
Carbon Dioxide 25
BUN 17
Creatinine 0.6 L
Glucose 133 H
Calcium 9.2
Vital Signs:
Vital Signs
Temp Pulse Resp BP Pulse Ox
97.8 F 78 16 158/89 95
07/15/24 07:00 07/15/24 11:12 07/15/24 11:12 07/15/24 07:00 07/15/24 11:12
I&O
07/14/24 07/15/24 07/16/24
06:59 06:59 06:59
Intake Total 900 / 900
Output Total 750 / 750 2250 / 2250
Balance -750 / -750 -1350 / -1350
Review of Systems
-
History Source: Patient and Coordinated Provider
Constitutional: Denies Fever
EENT: Reports No Symptoms Reported
Respiratory: Reports Cough and Trouble Breathing (better)
Abdomen/GI: Reports No Symptoms; Denies Abdominal Pain
Genitourinary: Reports No Symptoms
Musculoskeletal: Reports No Symptoms
Physical Exam
-
General: Well Developed, Well Nourished, No Apparent Distress, Comfortable and Respiratory Distress (with exertion, overall better than when first admitted)
HEENT: Normocephalic and Atraumatic
Respiratory: Wheezes (moving air better, mid to end expiratory wheeze) and Decreased Breath Sounds (distant BS)
Cardiac: Regular Rhythm and S1/S2
GI: Soft, Nontender and Nondistended
Musculoskeletal: No Clubbing, No Cyanosis and No Edema
Skin: Warm and Dry
Neuro: Awake, Alert and Oriented
[2024-07-15 15:00] VITALS: BP 164/84
[2024-07-15 15:24] VITALS: BP_SYST 94
--- NOTE | 2024-07-15 16:03 | W.PN.PUL3 ---
Today's Communication / Plan
-
Continue current antibiotics for now
Follow cultures
Dexamethasone decreased
Continue inhalers and nebulizer
Antitussives
Wean down FiO2 as able currently on 3 L-close to baseline.
Hopefully discharge in the next 24 to 48 hours
Assessment
-
Assessment: 78-year-old male with a past medical history of of COPD, CRESENCIO on CPAP, history of DVT/PE, pericardial cyst, depression, former tobacco use, former alcohol use, hyperlipidemia, chronic sinusitis, DM type II, BPH s/p TURP, and history of
bladder cancer s/p TURBT who presents with shortness of breath. Patient follows with us in the [facility] office, last visit 04/17/2024 with EV Travis. Managed on Trelegy 100 mcg + albuterol HFA as needed. He has stable moderate�severe COPD.
On 07/12/2024, he started to feel weak and short of breath with minimal activity. He checks his oxygen levels at home and it was as low as 83% at rest. He has oxygen at home although 6-minute walk test performed in the office showed that he did not
need home oxygen so it was in the process of being removed. He had been using 4 L/min at home. Prednisone taper prescribed by Dr. Mckay after the patient called the pulmonary office emergency line on 07/13. Because he did not improve he came
into the hospital for further evaluation. In the ER he was afebrile to 99.3 �F, pulse rate 89, respiratory rate 16, BP 133/84 and saturating 88% on 1 L/min. Saturations improved to 96% on 4 L/min. Labs showed Hb 12.9, troponin negative at <0.012,
and COVID-19 antigen negative. Flu swab was negative and blood cultures were collected. CXR showed large air bubble in the stomach with bibasilar scarring and subtle increased opacification in the right base. In the ER he was given ceftriaxone,
Zithromax, DuoNebs and Tylenol and admitted to the hospitalist service. Pulmonary service now consulted for additional management/recommendations.
Chronic conditions BUSINESS MACHINE OPERATOR: COPD, CRESENCIO on CPAP at 13 cmH2O, history of PE/DVT ( treated with 1 year of Coumadin with recurrent bilateral PE and extensive RLE DVT - 05/2020), history of pulmonary nodule, pericardial cyst, former tobacco smoker
(34-twuc-fjul history, quit 2018), depression, history of alcohol abuse, hyperlipidemia, chronic sinusitis, IBS, history of diverticulitis, arthritis, DM type II, BPH s/p TURP, celiac disease, history of bladder cancer (04/2022)
Impression:
#Right-sided CAP
#Acute COPD exacerbation
#Acute hypoxic respiratory failure due to above
#Constipation
#Chronic opioid use
#CRESENCIO on CPAP at 13 cm of water
#Anemia
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
#History of DVT/PE on Eliquis
#History of bladder cancer s/p TURBT
#GERD
#Former tobacco use (56-jvdi-ygti history, quit 2018)
Plan:
Clinically improving.
Remains on 3 L supplemental oxygen-he does wear oxygen at home 3 to 4 L.
- Would treat for continue therapy for a COPD exacerbation with antibiotics to cover a pneumonia
- Maintain SpO2 88-95% with supplemental O2 and wean down as tolerated
- Takes Trelegy at home, hence continue Symbicort 80 mcg + Spiriva; continue nebulized albuterol QID, monitoring for shakiness +/- tachycardia
- Agree with decreasing dexamethasone today. Hopefully can transition to prednisone in the next 24 to 48 hours.
- Mucolytics with Mucinex
- Antitussive
- Continue antibiotics with ceftriaxone + doxycycline-will complete total 7 days.
- Afebrile, leukocytosis present. Does not appear toxic.
- Cultures negative so far
- Continue with CPAP at 13 cmH2O which is his home settings, with average usage at home of 12 hours 18 minutes with residual AHI 0.6 (baseline AHI 112 events/hour via sleep study in June 2011)
- Of note, patient qualifies for annual LDCT chest at least until he is 79 years old -next due in April 2025 (this can be discussed as an outpatient
- Incentive spirometer encouraged q1hr while awake
- Maintain euglycemia with goal BG >100 and <180; check A1C
- DVT ppx: Eliquis
Code status: DNR/DNI
Hopefully discharge in the next 22 to 48 hours. Lung sound has improved
Pulmonary service will continue to follow along. We will arrange for outpatient pulmonary office follow-up after discharge.
Data:
CXR 07/13/2024:
1. SEVERE SCARRING in the LEFT LOWER LOBE with associated volume loss and moderate elevation of the left hemidiaphragm which appears unchanged.
2. Mild to moderate scarring in the right middle and lower lobes which appears unchanged.
3. SEVERE BILATERAL UPPER LOBE EMPHYSEMA.
Subjective Data
-
Date of Service:
Date of Service: July 15, 2024
Chief Complaint: Pulmonary Follow Up (Pneumonia/acute exacerbation of COPD)
Subjective:
Feels better.
Less coughing.
Afebrile.
Review of Systems
General: Fever (n)
Cardiopulmonary: Dyspnea (n) and Cough
GI: Abdominal Pain (n) and Nausea (n)
Objective Data
Data Reviewed
Vital Signs / I&O / Oxygen:
Vital Signs
Temp Pulse Resp BP Pulse Ox
97.6 F 95 22 164/84 95
07/15/24 15:00 07/15/24 15:00 07/15/24 15:00 07/15/24 15:00 07/15/24 15:31
Intake and Output
07/14/24 07/15/24 07/16/24
06:59 06:59 06:59
Intake Total 900 / 900
Output Total 750 / 750 2250 / 2250
Balance -750 / -750 -1350 / -1350
SaO2 95
Nasal Cannula flow liters per 3
minute
Physical Exam
General: Comfortable
HEENT: Normocephalic
Cardiovascular: S1-S2
Respiratory: Non-Labored Respirations
GI: Soft and Non Distended
Neurology: Awake, Oriented and No Motor Deficits
Skin: Warm
Labs/Micro/Reports
Lab Data
07/15/24 07:07
07/15/24 07:07
Microbiology
07/13/24 22:22 Blood/Venous Blood Culture - Preliminary
No Growth in 24 hours- Final report to follow
07/13/24 22:22 Blood/Venous Blood Culture - Preliminary
No Growth in 24 hours- Final report to follow
07/13/24 20:02 Nasal Swab Influenza Types A & B (FRAN) - Final
Negative for Influenza A & B, NAAT
Negative results must be combined with clinical observations
and patient history.
Nucleic Acid Amplification test (NAAT)performed on the
[employer] platform.
[2024-07-15] MEDS: DECADRON 2 MG IV ×2 (16:35→23:00)
[2024-07-15 16:39] LABS: Glucose - Point of Care 145 mg/dl (70-99)
[2024-07-15] MEDS: LIPITOR 40 MG PO (16:39)
[2024-07-15] MEDS: NORCO 5/325 1 TABLET PO ×2 (18:14→23:02)
[2024-07-15 21:29] LABS: Glucose - Point of Care 152 mg/dl (70-99)
[2024-07-15] MEDS: ROCEPHIN 1000 MG IV (21:56)
[2024-07-15] MEDS: FLOMAX 0.8 MG PO (21:56)
[2024-07-15 23:07] VITALS: BP 131/72
[2024-07-16 05:19] VITALS: BMI 31.8
[2024-07-16 07:00] VITALS: BP 159/97
[2024-07-16 08:05] LABS: % Basophils 0.2 % (0-2); % Immature Granulocytes 0.9 % (0-0.5); % Lymphocytes 10.9 % (20.5-51.1); % Monocytes 6.4 % (1.7-9.3); % Neutrophils 81.6 % (42.2-75.2); Absolute Immature Granulocytes 0.1 10^3/uL (0-0.05); Absolute Lymphocytes 1.4 10^3/uL (1.2-3.4); Absolute Monocytes 0.8 10^3/uL (0.1-0.6); Absolute Neutrophils 10.6 10^3/uL (1.4-6.5); Hematocrit 39.4 % (39.0-52.0); Hemoglobin 13.2 g/dL (13.0-18.0); Mean Corp Hgb Conc. 33.5 g/dL (33.0-37.0); Mean Corpuscular Hgb 32.1 pg (27.0-31.0); Mean Corpuscular Volume 95.9 fL (80.0-94.0); Mean Platelet Volume 9.7 fL (7.4-10.4); Nucleated Red Blood Cells % 0 % (-); Platelet Count 247 10^3/uL (130-400); Red Blood Cell Count 4.11 10^6/uL (4.70-6.10); Red Cell Dist. Width 14.2 % (11.5-14.5)
[2024-07-16 08:09] LABS: Glucose - Point of Care 134 mg/dl (70-99)
[2024-07-16] MEDS: SYMBICORT 80/4.5 MCG INHALER INH ×2 (08:15→08:58)
[2024-07-16] MEDS: VENTOLIN NEBULES 2.5 MG INH ×2 (08:15→11:24)
[2024-07-16] MEDS: SPIRIVA RESPIMAT 2.5 MCG INH ×2 (08:16→08:58)
[2024-07-16] MEDS: NEURONTIN 100 MG PO (08:34)
[2024-07-16] MEDS: VIBRAMYCIN 100 MG PO (08:34)
[2024-07-16] MEDS: DETROL LA 4 MG PO (08:34)
[2024-07-16] MEDS: CLARITIN 10 MG PO (08:34)
[2024-07-16] MEDS: ELIQUIS 5 MG PO (08:34)
[2024-07-16] MEDS: MUCINEX 600 MG PO (08:34)
[2024-07-16] MEDS: PROTONIX 40 MG PO (08:34)
[2024-07-16] MEDS: PROZAC 10 MG PO (08:34)
[2024-07-16] MEDS: PEPCID 40 MG PO (08:34)
[2024-07-16] MEDS: DECADRON 2 MG IV (08:35)
[2024-07-16] MEDS: NOVOLOG FLEXPEN-LOW RESISTANCE SC ×2 (08:36→12:05)
[2024-07-16 08:49] LABS: Blood Urea Nitrogen 24 mg/dl (9-20); Calcium 9.1 mg/dl (8.4-10.2); Carbon Dioxide 25 mmol/L (22-30); Chloride 102 mmol/L (98-107); Estimated Creatinine Clearance > 125 ml/min; Glucose 115 mg/dl (70-99); Potassium 4.2 mmol/L (3.5-5.1); Sodium 137 mmol/L (135-145); eGFR > 60.00
[2024-07-16] MEDS: NORCO 5/325 1 TABLET PO (09:30)
[2024-07-16] MEDS: MIRALAX 17 GRAMS PO (09:31)
[2024-07-16 11:40] LABS: Glucose - Point of Care 120 mg/dl (70-99)
--- NOTE | 2024-07-16 13:09 | W.DS.TRANS ---
DC Summary - Automatic Packer Operator
-
Discharge Instructions:
Discharge Diagnosis/Procedures COPD exacerbation
Diet Regular
Instructions:
Stand-Alone Forms:
Changes to Home Medications: Yes
Discharge Medications:
DC Medications w/original date entered in Rep
sitagliptin phosphate 100 mg tablet (Januvia) 100 mg PO QPM Diabetes 04/29/16
atorvastatin 40 mg tablet 40 mg PO QPM High cholesterol 05/02/16
albuterol sulfate 90 mcg/actuation aerosol inhaler 2 puff inhalation PRN PRN sob 06/11/20
docusate sodium 100 mg capsule 100 mg PO .DAILY,BID PRN constipation 06/11/20
tamsulosin 0.4 mg capsule 0.8 mg PO HS Urinary issue 06/11/20
apixaban 5 mg tablet (Eliquis) 5 mg PO BID Blood clot prevention/tx 05/03/22
fluoxetine 10 mg tablet 10 mg PO DAILY Depression 05/03/22
fluticasone fur. 100 mcg-umeclid 62.5 mcg-vilant 25 mcg inhalat.powder (Trelegy Ellipta) 1 inh inhalation DAILY Lung/breathing issues 05/03/22
hydrocodone 5 mg-acetaminophen 325 mg tablet 1 tab PO BID PRN moderate pain 05/03/22
diazepam 5 mg tablet (Valium) 5 mg PO PRN PRN anxiety 09/19/22
diphenhydramine HCl 25 mg capsule (Benadryl) 25 mg PO PRN PRN itching 09/19/22
loratadine 10 mg tablet (Claritin) 10 mg PO DAILY 09/19/22
Ocuvite-Lutein 1 tab PO DAILY 12/22/22
gabapentin 100 mg tablet 100 mg PO BID neuropathy legs 12/22/22
famotidine 40 mg tablet 40 mg PO DAILY Gastrointestinal Issue 07/13/24
meclizine 25 mg tablet 25 mg PO TID PRN dizzy 07/13/24
pantoprazole 40 mg tablet,delayed release (Protonix) 40 mg PO BID 07/13/24
vibegron 75 mg tablet (Gemtesa) 75 mg PO DAILY 07/13/24
trazodone 100 mg tablet 200 mg PO HS 07/14/24
doxycycline hyclate 100 mg capsule 100 mg PO BID #8 caps 07/16/24
prednisone 10 mg tablet 10 mg PO DIRECTED #30 tabs 07/16/24
Home Medication Changes
Antibiotic and steroid taper
Pending Results: No
--- NOTE | 2024-07-16 13:39 | CM ---
CM reviewed chart, patient seen bedside with son, for discharge today. CM discussed PT recommendations of home therapy, patient requesting referral to [facility], placed in [facility]. Patient/son report patients will provide transportation
home, will have home oxygen for transport home. IMM verbally reviewed, provided with copy, placed in chart. CM will continue to follow for all discharge planning needs.
Plan; home with [facility] pending acceptance
[facility]
--- NOTE | 2024-07-16 14:34 | W.PN.PUL3 ---
Today's Communication / Plan
-
Prednisone taper
Transition back to inhalers
Continue oxygen supplementation as prior admission
Albuterol HFA as needed
Continue CPAP
Discharge planning today
Sign off
Assessment
-
Assessment: 78-year-old male with a past medical history of of COPD, CRESENCIO on CPAP, history of DVT/PE, pericardial cyst, depression, former tobacco use, former alcohol use, hyperlipidemia, chronic sinusitis, DM type II, BPH s/p TURP, and history of
bladder cancer s/p TURBT who presents with shortness of breath. Patient follows with us in the [facility] office, last visit 04/17/2024 with EV Travis. Managed on Trelegy 100 mcg + albuterol HFA as needed. He has stable moderate�severe COPD.
On 07/12/2024, he started to feel weak and short of breath with minimal activity. He checks his oxygen levels at home and it was as low as 83% at rest. He has oxygen at home although 6-minute walk test performed in the office showed that he did not
need home oxygen so it was in the process of being removed. He had been using 4 L/min at home. Prednisone taper prescribed by Dr. Mckay after the patient called the pulmonary office emergency line on 07/13. Because he did not improve he came
into the hospital for further evaluation. In the ER he was afebrile to 99.3 �F, pulse rate 89, respiratory rate 16, BP 133/84 and saturating 88% on 1 L/min. Saturations improved to 96% on 4 L/min. Labs showed Hb 12.9, troponin negative at <0.012,
and COVID-19 antigen negative. Flu swab was negative and blood cultures were collected. CXR showed large air bubble in the stomach with bibasilar scarring and subtle increased opacification in the right base. In the ER he was given ceftriaxone,
Zithromax, DuoNebs and Tylenol and admitted to the hospitalist service. Pulmonary service now consulted for additional management/recommendations.
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
([id number] history, quit 2018), depression, history of alcohol abuse, hyperlipidemia, chronic sinusitis, IBS, history of diverticulitis, arthritis, DM type II, BPH s/p TURP, celiac disease, history of bladder cancer (04/2022)
Impression:
#Right-sided CAP
#Acute COPD exacerbation
#Acute hypoxic respiratory failure due to above
#Constipation
#Chronic opioid use
#CRESENCIO on CPAP at 13 cm of water
#Anemia
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
#History of DVT/PE on Eliquis
#History of bladder cancer s/p TURBT
#GERD
#Former tobacco use ([id number] history, quit 2018)
Plan:
Clinically improved. Discharge planning today.
Oxygen at baseline 3 to 4 L supplemental
- Would treat for continue therapy for a COPD exacerbation with antibiotics to cover a pneumonia
- Restart Trelegy
- Prednisone taper per
-Albuterol HFA as needed.
- Continue antibiotics with ceftriaxone + doxycycline-will complete total 7 days. Transition to oral antibiotics and complete total of 7 days.
Radiographic follow-up in the outpatient setting.
- Afebrile, leukocytosis present. Does not appear toxic.
- Cultures negative so far
- Continue with CPAP at 13 cmH2O which is his home settings, with average usage at home of 12 hours 18 minutes with residual AHI 0.6 (baseline AHI 112 events/hour via sleep study in June 2011)
- Of note, patient qualifies for annual LDCT chest at least until he is 79 years old -next due in April 2025 (this can be discussed as an outpatient
- Incentive spirometer encouraged q1hr while awake
- Maintain euglycemia with goal BG >100 and <180; check A1C
- DVT ppx: Eliquis
Code status: DNR/DNI
Discharge planning today.
Sign off
Outpatient pulmonary follow-up in our office. In 2 weeks.
Data:
CXR 07/13/2024:
1. SEVERE SCARRING in the LEFT LOWER LOBE with associated volume loss and moderate elevation of the left hemidiaphragm which appears unchanged.
2. Mild to moderate scarring in the right middle and lower lobes which appears unchanged.
3. SEVERE BILATERAL UPPER LOBE EMPHYSEMA.
Subjective Data
-
Date of Service:
Date of Service: July 16, 2024
Chief Complaint: Pulmonary Follow Up (Pneumonia/acute exacerbation of COPD)
Subjective:
Clinically improved
Review of Systems
Cardiopulmonary: Dyspnea (Improved) and Dyspnea on Exertion ( improved)
Objective Data
Data Reviewed
Vital Signs / I&O / Oxygen:
Vital Signs
Temp Pulse Resp BP Pulse Ox
97.6 F 76 16 159/97 95
07/16/24 07:00 07/16/24 11:28 07/16/24 11:28 07/16/24 07:00 07/16/24 11:28
Intake and Output
07/15/24 07/16/24 07/17/24
06:59 06:59 06:59
Intake Total 900 / 900 940 / 940
Output Total 2250 / 2250 1080 / 1080
Balance -1350 / -1350 -140 / -140
SaO2 95
Nasal Cannula flow liters per 3
minute
Physical Exam
General: Comfortable
HEENT: Normocephalic
Cardiovascular: S1-S2
Respiratory: Non-Labored Respirations
GI: Soft and Non Distended
Neurology: Awake, Oriented and No Motor Deficits
Skin: Warm
Labs/Micro/Reports
Lab Data
07/16/24 06:29
07/16/24 06:29
Microbiology
07/13/24 22:22 Blood/Venous Blood Culture - Preliminary
No Growth in 48 hours- Final report to follow
07/13/24 22:22 Blood/Venous Blood Culture - Preliminary
No Growth in 48 hours- Final report to follow
07/13/24 20:02 Nasal Swab Influenza Types A & B (FRAN) - Final
Negative for Influenza A & B, NAAT
Negative results must be combined with clinical observations
and patient history.
Nucleic Acid Amplification test (NAAT)performed on the
[employer] platform.
[2024-07-16 14:54] VITALS: BP 143/87
[2024-07-18 07:49] LABS: Mycoplasma pneumoniae IgG 0.04 U/L (<=0.09); Mycoplasma pneumoniae-IgM 0.02 U/L (<=0.76)
== END 2024-07-16 15:50 | disposition home health service (06) | DRG 193 ==
LOC: 4 WEST ACU 22:40
PROVIDERS: Internal Medicine; Registered Nurse; ADMITTING PHYSICIAN Hospitalist; ATTENDING PHYSICIAN Internal Medicine; CONSULT PHYSICIAN Internal Medicine Critical Care Medicine; EMERGENCY PHYSICIAN Emergency Medicine; FAMILY PHYSICIAN Family Medicine
PROC: 5A09357 Assistance with Respiratory Ventilation, Less than 24 Consecutive Hours, Continuous Positive Airway Pressure (ICD-10-PCS; 2024-07-13)
DX: J18.9 Pneumonia, unspecified organism (principal); J96.21 Acute and chronic respiratory failure with hypoxia; J44.0 Chronic obstructive pulmonary disease with (acute) lower respiratory infection; J44.1 Chronic obstructive pulmonary disease with (acute) exacerbation; G89.29 Other chronic pain; Z79.891 Long term (current) use of opiate analgesic; G47.33 Obstructive sleep apnea (adult) (pediatric); Z86.711 Personal history of pulmonary embolism; Z86.718 Personal history of other venous thrombosis and embolism; Z79.01 Long term (current) use of anticoagulants; Z85.51 Personal history of malignant neoplasm of bladder; Z90.79 Acquired absence of other genital organ(s); E78.00 Pure hypercholesterolemia, unspecified; F41.9 Anxiety disorder, unspecified; K21.9 Gastro-esophageal reflux disease without esophagitis; E11.40 Type 2 diabetes mellitus with diabetic neuropathy, unspecified; N40.0 Benign prostatic hyperplasia without lower urinary tract symptoms; Z66 Do not resuscitate; I10 Essential (primary) hypertension; Z99.81 Dependence on supplemental oxygen; D63.8 Anemia in other chronic diseases classified elsewhere; F17.200 Nicotine dependence, unspecified, uncomplicated; F32.A Depression, unspecified; K59.00 Constipation, unspecified; Z79.899 Other long term (current) drug therapy; Z82.3 Family history of stroke; Z82.49 Family history of ischemic heart disease and other diseases of the circulatory system; Z88.6 Allergy status to analgesic agent; Z11.52 Encounter for screening for COVID-19
CPT/HCPCS: 71046; 80048; 80053; 82805; 82962; 83036; 83735; 84100; 84484; 85025; 85379; 86738; 87040; 87502; 87811; 93005; 94640; 94660; 96365; 96375; 97116; 97162; 99285

== ENCOUNTER → 2024-10-02 11:11 | Outpatient (REF) | payer OTHER, SELFPAY | LOC: RAD 11:11 | PROVIDERS: ATTENDING PHYSICIAN Nurse Practitioner Family; FAMILY PHYSICIAN Family Medicine | DX: Z87.01 Personal history of pneumonia (recurrent) (principal) | CPT/HCPCS: 71046 ==

== ENCOUNTER 2024-10-04 15:21 | Emergency (ER) | payer OTHER, SELFPAY ==
[2024-10-04 15:32] VITALS: BP 156/88
[2024-10-04] MEDS: TYLENOL 1000 MG PO (15:43)
[2024-10-04 15:53] LABS: Hematocrit 39.9 % (39.0-52.0); Hemoglobin 13.6 g/dL (13.0-18.0); Mean Corp Hgb Conc. 34.1 g/dL (33.0-37.0); Mean Corpuscular Volume 91.9 fL (80.0-94.0); Nucleated Red Blood Cells % 0 % (-); Platelet Count 182 10^3/uL (130-400); Red Cell Dist. Width 13.5 % (11.5-14.5)
[2024-10-04 16:16] LABS: COVID-19 Antigen Negative (Negative)
[2024-10-04 16:17] LABS: ALT (SGPT) 16 U/L (0-50); AST (SGOT) 17 U/L (17-59); Albumin 4.3 g/dl (3.5-5.0); Alkaline Phosphatase 63 U/L (38-126); Blood Urea Nitrogen 8 mg/dl (9-20); Calcium 9.0 mg/dl (8.4-10.2); Carbon Dioxide 25 mmol/L (22-30); Chloride 102 mmol/L (98-107); Glucose 133 mg/dl (70-99); Potassium 3.6 mmol/L (3.5-5.1); Sodium 134 mmol/L (135-145); Total Protein 7.0 g/dl (6.3-8.2); eGFR > 60.00
[2024-10-04 18:45] VITALS: BP 147/83
[2024-10-04 18:46] VITALS: BP 147/83
--- NOTE | 2024-10-04 18:56 | ED.GENMED ---
History of Present Illness
General
Chief Complaint: Breathing Problem
Time Seen by Provider: 10/04/24 18:56
History of Present Illness
History of Present Illness:
PAST MEDICAL HISTORY AND REVIEW OF OLD RECORDS
- The patient has history of COPD on home oxygen, has had a PE in the past, high blood pressure, bladder cancer, history of alcohol abuse. I reviewed records, the patient was admitted here for several days in early July with community-acquired
pneumonia and COPD exacerbation.
Note:
CHIEF COMPLAINT(S)
The patient presents with concerns related to sleep apnea, dizziness, and a history of COPD exacerbation.
HISTORY OF PRESENT ILLNESS
The patient is a 78-year-old male with a past medical history notable for COPD and vestibular neuritis, presenting with symptoms suggestive of exacerbated sleep apnea and dizziness. He reports experiencing falls due to dizziness and describes a
sensation of running out of oxygen. He also mentioned suffering from significant visual impairment. The patient has previously been treated for COPD and pneumonia approximately two and a half months ago. Despite a lack of current pneumonia signs on
imaging, he reports ongoing breathing difficulties, minor wheezing, and occasional discomfort during breathing. The patient is on chronic oxygen therapy at a rate of 3 liters per minute, maintaining an oxygen saturation of about 97%.
PAST MEDICAL AND SURIGICAL HISTORY
- COPD
- Vestibular neuritis (approximately 1.5 years ago)
- History of pulmonary embolism
- Hip replacement (with recurring pain reported)
CHRONIC MEDICAL CONDITIONS SIGNIFICANTLY AFFECTING CARE
- COPD
- Vestibular neuritis
- History of pulmonary embolism
MEDICATIONS
- Apixaban (Eliquis) for anticoagulation
- Prednisone (on and off for approximately three years)
- Hydrocodone for pain management (5 mg, three times a day)
- ENT
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
- Respiratory: Reports difficulty breathing, diminished breath sounds with slight wheezing.
- Musculoskeletal: Reports hip pain, describing a previously replaced hip as 'gone bad.'
- Neurological: Reports dizziness leading to falls.
PHYSICAL EXAM
General: Alert, no acute distress.
Skin: Warm, dry.
Head: Normocephalic, atraumatic.
Neck: Supple, trachea midline.
Eye, Ears, Nose, Mouth, and Throat: Oral mucosa moist.
Cardiovascular: Normal peripheral perfusion, No edema.
Respiratory: Respirations are non-labored; breath sounds somewhat diminished with slight wheezing noted.
Gastrointestinal: Abdomen nondistended
Back: Normal range of motion, Normal alignment.
Musculoskeletal: Normal range of motion, reports chronic pain due to hip replacement complication.
Neurological: Alert and oriented to person, place, time, and situation, No focal neurological deficit observed.
Psychiatric: Cooperative, appropriate mood & affect.
PROBLEM LIST
Acute Problems:
- Exacerbation of COPD
- Dizziness with risk of falls
Chronic Problems:
- History of pulmonary embolism
PLAN
1. Administer immediate nebulized breathing treatment to alleviate respiratory symptoms.
2. Initiate a course of prednisone to manage inflammation.
3. Prescribe azithromycin for potential underlying infection despite negative x-ray findings.
4. Continue home oxygen therapy at 3 liters per minute.
5. Manage pain through continuation of hydrocodone, 5 mg three times daily.
6. Consider scheduling regular follow-ups to monitor COPD progression and oxygen requirements.
DIFFERENTIAL DIAGNOSIS
The Differential Diagnosis includes, in no particular order and is not limited to:
1. COPD exacerbation
2. Vestibular neuritis recurrence
3. Respiratory infection
4. Pulmonary embolism
5. Cardiac arrhythmia
6. Orthostatic hypotension
7. Acute bronchitis
8. Heart failure
9. Myocardial infarction
10. Chronic lung disease
RADIOLOGY
- Chest x-ray shows no acute abnormality and again shows chronically elevated left hemidiaphragm
EKG
- Sinus 82, left axis deviation, LVH
LABS
- White count 15.9, hemoglobin normal
UPDATE
-SUMMARY OF ENCOUNTER
The patient, a 78-year-old male with a history of COPD, vestibular neuritis, and pulmonary embolism, presented with symptoms suggestive of exacerbated COPD, including difficulty breathing and slight wheezing. Initial assessment in the emergency
department noted a fever. The patient underwent a nebulized breathing treatment which resulted in improvement of symptoms. Despite no confirmatory results on the chest x-ray, considering the fever, an antibiotic course was deemed necessary. The
patient was prescribed azithromycin to address potential underlying infection. A short course of systemic steroids was discussed to reduce inflammation and address exacerbated symptoms of COPD. The patient also reported ear discomfort, addressed
without significant intervention.
DISPOSITION
Discharge
ASSESSMENT
This encounter assessed the patient primarily for COPD exacerbation and potential respiratory infection.
EMERGENCY TREATMENTS ADMINISTERED
Nebulized albuterol treatment
PLAN
1. Prescribe a course of azithromycin for four days.
2. Prescribe prednisone for continued use at home.
3. Prescribe albuterol in nebulizer form for home use, replacing the patients old supply.
4. Encourage continuation of current home oxygen therapy.
5. Advise on follow-up with primary care for COPD management and monitoring.
MEDICATION RECONCILIATION
1. Azithromycin: Prescribed for four days.
2. Prednisone: Prescription sent for continuation of systemic steroids.
3. Albuterol: Nebulizer solution prescribed to replace the outdated supply.
MEDICAL DECISION MAKING
- Number and Complexity of Problems Addressed: Chronic conditions affecting care include COPD, vestibular neuritis, and history of pulmonary embolism. Differential diagnosis includes COPD exacerbation, vestibular neuritis recurrence, respiratory
infection, pulmonary embolism, cardiac arrhythmia, orthostatic hypotension, acute bronchitis, heart failure, myocardial infarction, chronic lung disease.
- Data:
- Category 1: Reviewed chest x-ray with no confirmatory pneumonia findings but presence of fever dictated antibiotic treatment.
- Risk: Prescription medication was prescribed, including respiratory medications and antibiotics, requiring monitoring for potential side effects. Consideration of admission/observation was made but deemed unnecessary at this juncture due to
controlled symptoms and vitals, with follow-up ensuring safety at home.
DIAGNOSIS
1. COPD Exacerbation - J44.1
2. Acute Upper Respiratory Infection - J00
3. Fever, unspecified - R50.9
The patient is well-appearing at time of discharge and is eager to go home.
Past History
Past History
ED Past Medical History: Cancer (Badder), COPD, GERD, HTN, NIDDM, Psychiatric and Other (BPH, chronic back pain, DVT/PE)
ED Past Surgical History: Orthopedic, Urological and Other (Hernia repair, ENT surgeon)
Social History
Tobacco: Smoker
Alcohol: Former
Drug: None
Personal:
Living: with family
Employment: Employed (Self-employed)
Family History
Family History: Other (Noncontributory)
Phy Exam
Physical Exam
Physical Exam:
See HPI
Scores
Heart Failure Risk
Heart Failure Risk Score: Not Applicable
Sepsis
Sepsis Screening
Sepsis Assessment: Sepsis Ruled Out
Sepsis Screen
Sepsis Screen: Sepsis Ruled Out
Date: 10/04/24
Time: 20:34
Course
Orders/Labs/Results
Orders:
Orders
10/04/24 15:38
CR Chest - 2 Views Urgent
Comment:
Reason For Exam: sob
10/04/24 15:41
Acetaminophen [Tylenol] 1,000 mg .ROUTE .STK-MED ONE
10/04/24 15:43
COVID-19 Antigen Urgent
Source: Nasal Swab
Complete Blood Count/With Diff Urgent
Comprehensive Metabolic Panel Urgent
Influenza A+B Rapid Molecular Urgent
ANA Source: Nasal Swab
Specimen Description:
Acetaminophen [Tylenol] 1,000 mg PO NOW STA
10/04/24 19:08
Hydrocodone 5/APAP 325 [[place] 5/325] 1 tablet PO NOW STA
Ipratropium/Albuterol Sulfate [Duoneb] 3 ml INH R NOW STA
Prednisone [Deltasone] 50 mg PO NOW STA
10/04/24 20:26
Azithromycin [Zithromax] 500 mg PO NOW STA
10/05/24 08:00
Azithromycin [Zithromax] 500 mg PO DAILY
Abnormal Lab Results
10/04/24
15:43
WBC 15.9 H 10^3/uL
(4.8-10.8)
RBC 4.34 L 10^6/uL
(4.70-6.10)
MCH 31.3 H pg
(27.0-31.0)
Abs Immat Gran (auto) 0.1 H 10^3/uL
(0-0.05)
Absolute Neuts (auto) 12.4 H 10^3/uL
(1.4-6.5)
Absolute Monos (auto) 1.8 H 10^3/uL
(0.1-0.6)
Neutrophils % 77.8 H %
(42.2-75.2)
Lymphocytes % 9.4 L %
(20.5-51.1)
Monocytes % 11.6 H %
(1.7-9.3)
Sodium 134 L mmol/L
(135-145)
BUN 8 L mg/dl
(9-20)
Creatinine 0.6 L mg/dL
(0.7-1.3)
Glucose 133 H mg/dl
(70-99)
Total Bilirubin 1.9 H mg/dl
(0.2-1.3)
10/04/24 15:43
10/04/24 15:43
Vital Signs
Initial and Last Documented VS:
Initial Vital Signs
Temp Pulse Resp BP Pulse Ox
39.4 C H 107 22 156/88 92
10/04/24 15:32 10/04/24 15:32 10/04/24 15:32 10/04/24 15:32 10/04/24 15:32
Last Documented Vital Signs
Temp Pulse Resp BP Pulse Ox
37.2 C 87 21 147/83 96
10/04/24 18:46 10/04/24 18:45 10/04/24 18:45 10/04/24 18:46 10/04/24 19:01
*Pulse Oximetry
SaO2: 96
Nasal Cannula flow liters per minute: 3
Patient hypoxic: yes (Patient is chronically on home oxygen and is 97% on his usual 3 L/min of oxygen)
*Critical Care Note
Total Time (30-74mins, 75-104mins- exclusive of procedures): Not Applicable
ED Attending Note
-
Portions of this chart may have been created with voice recognition software.� Occasional wrong word or��sound alike� substitutions may have occurred due to the inherent limitations of voice recognition software.
Discharge Plan
Departure
Patient Disposition: Home (Routine Discharge)
Date of Disposition: 10/04/24
Time of Disposition: 20:29
Patient with high blood pressure during this ER visit?: Yes
Discharge Problem:
Acute exacerbation of chronic obstructive pulmonary disease
Instructions: Exacerbation of COPD (DC)
Prescriptions:
New
azithromycin 250 mg tablet
250 mg PO DAILY 4 Days Qty: 4 0RF
albuterol sulfate 2.5 mg /3 mL (0.083 %) solution for nebulization
2.5 mg inhalation Q6H PRN (Reason: shortness of breath or wheezing) Qty: 90 0RF
prednisone 50 mg tablet
50 mg PO DAILY Qty: 4 0RF
No Action
atorvastatin 40 MG tablet
40 mg PO QPM
tamsulosin 0.4 MG capsule
0.8 mg PO HS
albuterol sulfate 1 PUFF HFA aerosol inhaler
2 puff inhalation PRN PRN (Reason: sob)
docusate sodium 100 MG capsule
100 mg PO .DAILY,BID PRN (Reason: constipation)
Eliquis 5 mg Tablet
5 mg PO BID
Trelegy Ellipta 100-62.5-25 mcg Blister With Device
1 inh INHALATION DAILY
hydrocodone-acetaminophen 5-325 mg Tablet
1 tab PO BID PRN (Reason: moderate pain)
fluoxetine 10 mg Tablet
10 mg PO DAILY
diphenhydramine HCl [Benadryl] 25 mg Capsule
25 mg PO PRN PRN (Reason: itching)
loratadine [Claritin] 10 mg Tablet
10 mg PO DAILY
diazepam [Valium] 5 mg Tablet
5 mg PO PRN PRN (Reason: anxiety)
gabapentin 100 mg Tablet
100 mg PO BID
Ocuvite-Lutein
1 tab PO DAILY
famotidine 40 mg Tablet
40 mg PO DAILY
meclizine 25 mg Tablet
25 mg PO TID PRN (Reason: dizzy)
pantoprazole [Protonix] 40 mg Tablet,Delayed Release (Dr/Ec)
40 mg PO BID
Gemtesa 75 mg Tablet
75 mg PO DAILY
trazodone 100 mg Tablet
200 mg PO HS
doxycycline hyclate 100 mg Capsule
100 mg PO BID Qty: 8 0RF
prednisone 10 mg tablet
10 mg PO DIRECTED Qty: 30 0RF
Rx Instructions:
Start with 40 mg daily and taper by 10 mg every 4th day
Januvia 100 MG tablet
100 mg PO QPM
Referrals:
Charlie Simon MD [Family Provider, Family Practice]
Activity Restrictions/Additional Instructions:
Take Tylenol if you develop any further fevers. I am sending a prescription for steroids and azithromycin antibiotic to your pharmacy. Return here if worse or other concerns. I am also sending a prescription for albuterol for the nebulizer.
Interventions
Interventions:
*Risk Screen - Suicide Last Done: 10/04/24 15:32
*General Assessment Last Done: 10/04/24 15:32
*Neglect/Abuse Screening Last Done: 10/04/24 15:32
ED- Pulmonary Assessment Last Done: 10/04/24 18:47
Discharge Date and Time
Print Language: BELGIAN
[2024-10-04 19:00] VITALS: BP 139/68
[2024-10-04] MEDS: DUONEB 3 ML INH (19:16)
[2024-10-04] MEDS: DELTASONE 50 MG PO (19:16)
[2024-10-04] MEDS: NORCO 5/325 1 TABLET PO (19:16)
[2024-10-04 20:00] VITALS: BP 133/77
[2024-10-04] MEDS: ZITHROMAX 500 MG PO (20:39)
== END 2024-10-04 20:49 | disposition home or self-care (01) ==
LOC: EMR 15:21
PROVIDERS: Emergency Medicine; EMERGENCY PHYSICIAN Emergency Medicine; FAMILY PHYSICIAN Family Medicine
DX: J44.1 Chronic obstructive pulmonary disease with (acute) exacerbation (principal); F17.200 Nicotine dependence, unspecified, uncomplicated; Z99.81 Dependence on supplemental oxygen; E11.9 Type 2 diabetes mellitus without complications; I10 Essential (primary) hypertension; G47.30 Sleep apnea, unspecified; H54.7 Unspecified visual loss; K21.9 Gastro-esophageal reflux disease without esophagitis; N40.0 Benign prostatic hyperplasia without lower urinary tract symptoms; M54.9 Dorsalgia, unspecified; G89.29 Other chronic pain; G89.28 Other chronic postprocedural pain; Z79.01 Long term (current) use of anticoagulants; Z79.84 Long term (current) use of oral hypoglycemic drugs; Z86.711 Personal history of pulmonary embolism; Z86.718 Personal history of other venous thrombosis and embolism; Z85.51 Personal history of malignant neoplasm of bladder; Z96.649 Presence of unspecified artificial hip joint
CPT/HCPCS: 99284; 94640; 71046; 80053; 85025; 87502; 87811